=== PATIENT | female | born 2000 | race Caucasian/White ===

== ENCOUNTER 2018-01-13 16:46 | Emergency (ER) | payer OTHER ==
[~2018-01-13] VITALS: Ht 162.6 cm; Wt 72.6 kg
[~2018-01-13 16:46] MED LIST: EPIPEN 2-P0.3 MG/0.3 IM; MONTELUKAST SOD10 MG PO; PREDNISONE 20 M20 MG PO; PREDNISONE50 MG PO; RESCUE INHALER INH; VENTOLIN HFA 1818 GM INH
[2018-01-13 17:14] LABS: HEMOGLOBIN 13.5 gm/dL (12.0-15.0); MCH 29.4 pg (26.0-34.0); WBC 9.7 thou/uL (4.0-11.0)
[2018-01-13 17:16] LABS: ABSOLUTE EOSINOPHILS 0.3 thou/uL (0.0-0.7); ABSOLUTE LYMPHOCYTES 1.1 thou/uL (0.8-5.3); ABSOLUTE MONOCYTES 0.7 thou/uL (0.0-1.2); ABSOLUTE NEUTROPHILS 7.6 thou/uL (1.6-8.1); BASOPHILS 0.3 %; EOSINOPHILS 3.3 %; HEMATOCRIT 39.5 % (37.0-47.0); MCHC 34.2 g/dL (28.0-37.0); MCV 85.9 fL (80.0-100.0); MONOCYTES 6.8 %; MPV 9.1 fl. (7.2-11.1); NUCLEATED RBCS 0 /100WBC; PLATELET COUNT* 216 thou/uL (150-400); POLYS 78.6 %; RDW-CV 13.4 % (10.5-14.5)
[2018-01-13 17:25] LABS: ANION GAP 7 mmol/L (7-16); BUN 10 mg/dL (7-18); CALCIUM 9.1 mg/dL (8.5-10.1); CHLORIDE 104 mmol/L (98-107); CO2 26 mmol/L (21-32); CREATININE 0.8 mg/dL (0.6-1.3); GLUCOSE 90 mg/dL (70-99); POTASSIUM 3.8 mmol/L (3.5-5.1); SODIUM 137 mmol/L (136-145)
[2018-01-13 17:32] LABS: ALBUMIN 4.1 g/dL (3.4-5.0); ALKALINE PHOSPHATASE 67 U/L (46-116); LIPASE 128 U/L (73-393); MAGNESIUM 1.7 mg/dL (1.8-2.4); SGOT 19 U/L (15-37); SGPT 42 U/L (30-65); TOTAL BILIRUBIN 0.4 mg/dL (<0.1-1.0); TOTAL PROTEIN 7.9 g/dL (6.4-8.2); TROPONIN-I LEVEL <0.06 ng/mL (<0.06)
[2018-01-13] MEDS ORDERED: DIPHENHIST50 MG PO (17:58)
[2018-01-13] MEDS ORDERED: PREDNISONE50 MG PO (17:58)
[2018-01-13] MEDS ORDERED: VENTOLIN HFA 1818 GM INH (17:58)
[2018-01-13 18:23] VITALS: BP 119/64
--- NOTE | 2018-01-14 10:22 | EKG ---
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
== END 2018-01-13 18:24 | disposition home or self-care (01) ==
LOC: M.ERS 16:46
PROVIDERS: Emergency Medicine Emergency Medical Services
DX: T78.40XA Allergy, unspecified, initial encounter (principal); F10.99 Alcohol use, unspecified with unspecified alcohol-induced disorder; Z87.891 Personal history of nicotine dependence; Z88.8 Allergy status to other drugs, medicaments and biological substances; Z91.011 Allergy to milk products; Z91.013 Allergy to seafood; X58.XXXA Exposure to other specified factors, initial encounter